=== PATIENT | female | born 1980 | race American Indian/Alaskan Native ===

== ENCOUNTER 2019-01-01 14:46 | Outpatient (CLI) | payer MEDICAID ==
[2019-01-01] MEDS ORDERED: CELESTONE SOLUSPAN IM ONE (15:02)
== END 2019-01-01 15:25 | disposition home or self-care (01) ==
LOC: TRG 14:46
PROVIDERS: ATTEND Obstetrics & Gynecology
DX: O47.03 False labor before 37 completed weeks of gestation, third trimester (principal); O09.523 Supervision of elderly multigravida, third trimester; Z3A.33 33 weeks gestation of pregnancy
CPT/HCPCS: 96372; J0702

== ENCOUNTER 2019-02-12 09:04 | Inpatient (IN) | payer MEDICAID ==
[2019-02-12] MEDS ORDERED: LACTATED RINGERS 2,000 ML ONE (09:21)
[2019-02-12] MEDS ORDERED: PITOCin/NS 20 UNIT/1000ML DRIP 20,000 MILLIUNITS/1,000 ML BAG IV ONE (09:22)
[2019-02-12] MEDS ORDERED: PEPCID IV ONE ×2 (09:23→10:20)
[2019-02-12] MEDS ORDERED: REGLAN ONE (09:23)
[2019-02-12] MEDS ORDERED: BICITRA ONE (09:23)
[2019-02-12] MEDS ORDERED: ANCEF/STERILE WATER 2 GM/20 ML 2 GM/20 ML SYRINGE IV ONE (09:23)
[2019-02-12] MEDS ORDERED: REGLAN IV ONE (10:20)
[2019-02-12] MEDS ORDERED: BICITRA PO ONE (10:20)
[2019-02-12] MEDS ORDERED: DILAUDID IV PRN ×2 (10:33)
[2019-02-12] MEDS ORDERED: ZOFRAN IV PRN ×2 (10:33→12:23)
[2019-02-12] MEDS ORDERED: BENADRYL IV PRN (10:33)
--- NOTE | 2019-02-12 10:47 | Anesthesia Consultation ---
Anesthesia Consult and Med Hx Date of service: 02/12/19 - Airway Anesthetic Teeth Evaluation: Good ROM Head & Neck: Adequate Mental/Hyoid Distance: Adequate Mallampati Class: Class II Intubation Access Assessment: Probably Good - Pulmonary Exam CTA: Yes - Cardiac Exam Cardiac Exam: RRR - Pre-Operative Health Status ASA Pre-Surgery Classification: ASA2 Proposed Anesthetic Plan: Spinal - Pulmonary Hx Smoking: No Hx Asthma: No Hx Respiratory Symptoms: No SOB: No COPD: No Home Oxygen Therapy: No Hx Pneumonia: No Hx Sleep Apnea: No - Cardiovascular System Hx Hypertension: No Hx Coronary Artery Disease: No Hx Heart Attack/AMI: No Hx Angina: No Hx Percutaneous Transluminal Coronary Angioplasty (PTCA): No Hx Cardia Arrhythmia: No Hx Pacemaker: No Hx Internal Defibrillator: No Hx Valvular Heart Disease: No Hx Heart Murmur: No Hx Peripheral Vascular Disease: No - Central Nervous System Hx Neuromuscular Disorder: No Hx Seizures: No CVA: No Hx Back Pain: No Hx Psychiatric Problems: No - Gastrointestinal Hx Ulcer: No Hx Gastroesophageal Reflux Disease: Yes - Endocrine Hx Renal Disease: No Hx End Stage Renal Disease: No Hx Cirrhosis: No Hx Liver Disease: No Hx Insulin Dependent Diabetes: No Hx Non-Insulin Dependent Diabetes: No Hx Thyroid Disease: No Hx Hypothyroidism: No Hx Hyperthyroidism: No - Hematic Hx Anemia: No Hx Sickle Cell Disease: No - Other Systems Hx Alcohol Use: No Hx Substance Use: No Hx Cancer: No Hx Obesity: Yes (39 BMI)
--- NOTE | 2019-02-12 10:48 | Anesthesia Day of Surgery ---
Anesthesia Day of Surgery - Day of Surgery Patient Examined: Yes Patient H&P Reviewed: Yes Patient is NPO: Yes Beta Blockers: No Cardiac Clearance: No Pulmonary Clearance: No Tenzin's Test: N/A
[2019-02-12] MEDS ORDERED: DEXMEDETOMIDINE IV ONE (10:58)
[2019-02-12] MEDS ORDERED: SODIUM CHLORIDE FLUSH SYRINGE 10 ML IV NR (11:00)
[2019-02-12] MEDS ORDERED: LACTATED RINGERS 1,000 ML IV SCH (11:00)
[2019-02-12] MEDS ORDERED: ANCEF/STERILE WATER 2 GM/20 ML 2 GM/20 ML SYRINGE IV NR (11:00)
[2019-02-12] MEDS ORDERED: PITOCin/NS 20 UNIT/1000ML DRIP 20 UNITS/1,000 ML BAG IV SCH ×2 (11:00→13:00)
[2019-02-12] MEDS ORDERED: WATER FOR IRRIG STERILE IR ONE (11:12)
[2019-02-12] MEDS ORDERED: NACL 0.9% IR ONE (11:12)
[2019-02-12] MEDS ORDERED: NEO SYNEPHRINE ONE (11:25)
[2019-02-12] MEDS ORDERED: TORADOL ONE (11:53)
[2019-02-12] MEDS ORDERED: ZOFRAN ONE (11:53)
[2019-02-12] MEDS ORDERED: LANSINOH TP PRN (12:23)
[2019-02-12] MEDS ORDERED: MYLICON PO PRN (12:23)
[2019-02-12] MEDS ORDERED: NARCAN 0.4 MG/1 ML IV PRN (12:23)
[2019-02-12] MEDS ORDERED: MILK OF MAGNESIA PO PRN (12:23)
[2019-02-12] MEDS ORDERED: TORADOL IV PRN ×2 (12:23)
[2019-02-12] MEDS ORDERED: SENOKOT PO PRN (12:23)
[2019-02-12] MEDS ORDERED: NORCO 5/325 PO PRN (12:23)
[2019-02-12] MEDS ORDERED: MORPHINE IV PRN ×2 (12:23)
[2019-02-12] MEDS ORDERED: TYLENOL PO PRN (12:23)
[2019-02-12] MEDS ORDERED: TUCKS PAD TP PRN (12:23)
[2019-02-12] MEDS ORDERED: PHENERGAN PR PRN (12:23)
[2019-02-12] MEDS ORDERED: ANUCORT-HC PR PRN (12:23)
--- NOTE | 2019-02-12 12:30 | Procedure Note ---
OB Delivery Note - Delivery Date of Delivery: 02/12/19 Surgeon: SANAZ GALDAMEZ Estimated blood loss: other (600cc) - Section Preop diagnosis: repeat , desires sterilization Postop diagnosis: same section procedure: repeat low transverse, other (salpingectomy) Disposition: PACU Complications: none Narrative: see op note - A at 1 minute: 9 at 5 minutes: 9 Infant Gender: Female (6 pounds and 10 oz)
--- NOTE | 2019-02-12 12:36 | Post Anesthesia Evaluation ---
- Post Anesthesia Evaluation Patient Participated: Yes Airway Patent: Yes Stable Respiratory Function: Yes Nausea/Vomiting: No Temp > 96.8F: Yes Pain Manageable: Yes Adequeate Hydration: Yes Anesthesia Complications: No Block Receding Appropriately: Yes Patient on Ventilator: No
--- NOTE | 2019-02-12 12:40 | Operative Report ---
Operative Report Operative Report: PREOPERATIVE DIAGNOSES: 1. Intrauterine at term. 2. Desires permanent sterilization 3. Previous 4. Breech POSTOPERATIVE DIAGNOSES: 1-4 BUCK PROCEDURE PERFORMED: Repeat low-transverse section.and Salpingectomy ANESTHESIA: Epidural. ESTIMATED BLOOD LOSS: 600 mL. COMPLICATIONS: None. FINDINGS: Female in cephalic presentation, Breech position, weight 6 pounds 10 ounces. Apgars were 9 at 1 minute and 9 at 5 minutes. Normal uterus, tubes, and ovaries were noted. INDICATIONS: The patient is a 38-year-old 3, para 1 female, who presented to labor and delivery for scheduled csearean and tubal ligation The procedure was described to the patient in detail including possible risks of bleeding, infection, injury to surrounding organs, and possible need for further surgery. Informed consent was obtained prior to proceeding with the procedure. The patient was taken to the operating room where epidural anesthesia was found to be adequate. The patient was prepped and draped in the usual sterile fashion in the dorsal supine position with a left-michael tilt. A Pfannenstiel skin incision was made with the scalpel and carried through to the underlying layer of fascia using the Bovie. The fascia was incised in the midline and extended laterally using Chawla scissors. Fadi clamps were used to elevate the superior aspect of the fascial incision, which was elevated, and the underlying rectus muscles were dissected off bluntly and using Chawla scissors. Attention was then turned to the inferior aspect of the fascial incision, which in similar fashion was grasped with Fadi clamps, elevated, and the underlying rectus muscles were dissected off bluntly and using Chawla scissors. The rectus muscles were dissected in the midline. The peritoneum was bluntly dissected, entered, and extended superiorly and inferiorly with good visualization of the bladder. The bladder blade was inserted. The vesicouterine peritoneum was identified with pickups and entered sharply using Metzenbaum scissors. This incision was extended laterally and the bladder flap was created digitally. The bladder blade was reinserted. The lower uterine segment was incised in a transverse fashion using the scalpel and extended using manual traction. Clear fluid was noted. The was subsequently delivered via breech procedure. The nose and mouth were bulb suctioned. The cord was clamped and cut. The was subsequently handed to the awaiting nursery nurse. Next, cord blood was obtained per the patient's request for cord blood , which took several minutes to perform. Subsequent to the collection of this blood, the placenta was removed spontaneously intact with a 3-vessel cord noted. The uterus was exteriorized and cleared of all clots and debris. The uterine incision was repaired in 2 layers using 0 chromic suture. Hemostasis was visualized. The uterus was returned to the abdomen. Surgicell and tissel used for excellent hemostasis. The pelvis was copiously irrigated. The uterine incision was reexamined and was noted to be hemostatic. The rectus muscles were reapproximated in the midline using 3-0 Vicryl. The fascia was closed with 0 Vicryl, the subcutaneous layer was closed with 3-0 plain gut, and the skin was closed with Luis needle. Sponge, lap, and instrument counts were correct x2. The patient was stable at the completion of the procedure and was subsequently transferred to the recovery room in stable condition. The tube was stabilized using a grasper and a Harmonic scalpel was used to dissect the tube away from the mesosalpinx and the ovary and also used to come across the tubal insertion into the uterus. The operative site was examined and found to be hemostatic.
[2019-02-12] MEDS ORDERED: D5LR 1,000 ML IV SCH (13:00)
[2019-02-12] MEDS ORDERED: SODIUM CHLORIDE FLUSH SYRINGE 10 ML IV SCH (13:00)
[2019-02-12] MEDS ORDERED: PITOCin/NS 20 UNIT/1000ML DRIP 0 MILLIUNITS/0 ML BAG IV ONE (15:17)
[2019-02-12 15:20] LABS: Basophils % (Auto) 0.1 % (0.0-1.8); Eosinophils % (Auto) 0.3 % (0.0-4.3); Hematocrit 35.6 % (30.3-42.9); Hemoglobin 11.6 gm/dl (10.1-14.3); Lymphocytes % (Auto) 9.4 % (13.4-35.0); Mean Corpuscular HGB Conc 33 % (30-34); Mean Corpuscular Volume 78 fl (79-97); Monocytes # (Auto) 0.7 K/mm3 (0.0-0.8); Monocytes % (Auto) 6.3 % (0.0-7.3); Platelet Count 314 K/mm3 (140-440); Red Blood Count 4.58 M/mm3 (3.65-5.03); Red Cell Distribution Width 15.4 % (13.2-15.2)
[2019-02-13 00:52] LABS: Hematocrit 34.4 % (30.3-42.9); Hemoglobin 11.5 gm/dl (10.1-14.3)
[2019-02-13] MEDS: PERCOCET 5/325 PO PRN (04:13)
[2019-02-13] MEDS ORDERED: BOOSTRIX IM ONE ×2 (06:00→12:25)
[2019-02-13] MEDS: IBUPROFEN PO PRN ×3 (06:04→20:17)
--- NOTE | 2019-02-13 08:29 | Progress Note ---
Assessment and Plan POD1 s/p repeat with salpingectomy at term Labs and vital signs stable Abdominal binder Discharge to home tomorrow Subjective - Subjective Date of service: 02/13/19 Principal diagnosis: POD1 Interval history: Pt is POD1 s/p repeat and salpingectomy at term. Patient reports: appetite normal, voiding normally, pain well controlled, flatus, ambulating normally [place]: doing well, bottle feeding Objective - Vital Signs Latest vital signs: Vital Signs Temp Pulse Resp BP BP Pulse Ox 02/13/19 06:04 18 02/13/19 05:48 99.0 F 100 H 20 129/77 94 02/13/19 04:13 18 02/12/19 23:19 98.7 F 89 18 123/56 93 02/12/19 20:01 98.1 F 85 18 127/71 94 02/12/19 16:05 97.4 F L 69 20 104/54 97 02/12/19 13:50 97.4 F L 81 16 100/54 98 02/12/19 13:35 97.6 F 85 14 100/54 96 02/12/19 13:20 86 93/54 02/12/19 13:05 86 96/52 02/12/19 12:50 86 89/55 02/12/19 12:45 89 91/52 02/12/19 12:40 84 96/47 02/12/19 12:35 97.6 F 98 H 14 93/43 96 02/12/19 09:52 99.0 F 93 H 20 129/72 Intake and Output 02/12/19 02/13/19 02/13/19 23:59 07:59 15:59 Intake Total 240 Output Total 250 500 Balance -10 -500 Intake: Oral 240 Output: Urine 250 500 Indwelling Catheter 250 500 Other: Total, Intake Amount 240 Total, Output Amount 250 300 - Exam Lungs: Present: Normal air movement Abdomen: Present: normal appearance, soft Uterus: Present: normal, firm, fundal height below umbilicus Extremities: Present: edema Incision: Present: dressed - Labs Labs: Abnormal lab results 02/12/19 Range/Units 14:48 MCV 78 L (79-97) fl MCH 25 L (28-32) pg RDW 15.4 H (13.2-15.2) % Lymph % (Auto) 9.4 L (13.4-35.0) % Lymph # 1.0 L (1.2-5.4) K/mm3 Seg Neutrophils % 83.9 H (40.0-70.0) % Seg Neutrophils # 9.2 H (1.8-7.7) K/mm3
[2019-02-13] MEDS: FEOSOL PO SCH (10:37)
[2019-02-13] MEDS: PRENATAL VITAMIN PO SCH (11:01)
[2019-02-13] MEDS ORDERED: M-M-R II VACCINE SUB-Q ONE (12:25)
[2019-02-14] MEDS: IBUPROFEN PO PRN (05:51)
--- NOTE | 2019-02-14 08:15 | Progress Note ---
Assessment and Plan POD2 s/p repeat with salpingectomy at term Labs and vital signs stable Discharge to home today Subjective - Subjective Date of service: 02/14/19 Principal diagnosis: POD2 Interval history: Pt is POD2 s/p repeat and salpingectomy at term. Patient reports: appetite normal, voiding normally, pain well controlled, flatus, ambulating normally : doing well, bottle feeding Objective - Vital Signs Latest vital signs: Vital Signs Temp Pulse Resp BP 02/14/19 05:51 18 02/14/19 00:00 98.4 F 74 18 122/74 02/13/19 20:17 18 02/13/19 16:15 98.9 F 99 H 20 101/62 Intake and Output 02/13/19 02/14/19 02/14/19 23:59 07:59 15:59 Intake Total 540 Balance 540 Intake: Oral 240 Intake, Free Water 300 Other: Total, Intake Amount 240 # Voids Void 1 - Exam Lungs: Present: Normal air movement Abdomen: Present: normal appearance, soft Uterus: Present: normal, firm, fundal height below umbilicus Extremities: Present: normal Incision: Present: dressed
--- NOTE | 2019-02-14 08:18 | Discharge Summary ---
Providers - Providers Date of Admission: 02/12/19 09:04 Date of discharge: 02/14/19 Attending physician: SANAZ GALDAMEZ MD Primary care physician: SANAZ GALDAMEZ MD Hospitalization Reason for admission: section Delivery: Procedure: repeat low transverse Episiotomy: none Incision: dressed Other procedures: other (salpingectomy) complications: none Discharge diagnosis: IUP at term delivered Hospital course: Pt presented for repeat at term. Viable delivered. Hospital course was uncomplicated. She met discharge criteria on POD1. Condition at discharge: Good Disposition: DC-01 TO HOME OR SELFCARE Plan - Discharge Medications Prescriptions: Ferrous Sulfate [Feosol 325 MG tab] 325 mg PO BID #60 tablet Ibuprofen [Motrin] 600 mg PO Q8H PRN #30 tablet PRN Reason: Pain oxyCODONE /ACETAMINOPHEN [Percocet 5/325] 1 tab PO Q6HR PRN #30 tablet PRN Reason: Pain - Provider Discharge Summary Activity: routine, no sex for 6 weeks, no heavy lifting 4 weeks, no strenuous exercise Diet: routine Instructions: routine Additional instructions: [] Smoking cessation referral if applicable(refer to patient education folder for contact #) [] Refer to [facility] Booklet Call your doctor immediately for: * Fever > 100.5 * Heavy vaginal bleeding ( >1 pad per hour) * Severe persistent headache * Shortness of breath * Reddened, hot, painful area to leg or breast * Drainage or odor from incision. * Keep incision clean and dry at all times and follow doctor's instructions rega rding bathing/showering - Follow up plan Follow up: SANAZ GALDAMEZ MD [Primary Care Provider] - 14 Days (Please call [facility] to schedule appointment.)
[2019-02-14] MEDS: PERCOCET 5/325 PO PRN (09:51)
[2019-02-14] MEDS: PRENATAL VITAMIN PO SCH (09:51)
[2019-02-14] MEDS: FEOSOL PO SCH (09:51)
[2019-02-14 10:55] VITALS: BP 139/58
== END 2019-02-14 14:30 | disposition home or self-care (01) | DRG 766 ==
LOC: APU 09:04 → OB 14:12
PROVIDERS: ADMIT Obstetrics & Gynecology; ATTEND Obstetrics & Gynecology
PROC: 10D00Z1 Extraction of Products of Conception, Low, Open Approach (ICD-10-PCS; principal; 2019-02-12)
PROC: 0UB70ZZ Excision of Bilateral Fallopian Tubes, Open Approach (ICD-10-PCS; 2019-02-12)
PROC: 3E0234Z Introduction of Serum, Toxoid and Vaccine into Muscle, Percutaneous Approach (ICD-10-PCS; 2019-02-13)
DX: O34.211 Maternal care for low transverse scar from previous cesarean delivery (principal); O32.1XX0 Maternal care for breech presentation, not applicable or unspecified; O99.62 Diseases of the digestive system complicating childbirth; K21.9 Gastro-esophageal reflux disease without esophagitis; O99.214 Obesity complicating childbirth; Z3A.36 36 weeks gestation of pregnancy; Z37.0 Single live birth; Z23 Encounter for immunization; Z30.2 Encounter for sterilization
CPT/HCPCS: 36415; 85014; 85018; 85025; 86850; 86900; 86901; 88302; 90715; G0378; J0690; J1885; J2370; J2405; J2590; J2765; J3490; J7120